=== PATIENT | female | born 1970 | race Caucasian/White ===

== ENCOUNTER → 2017-08-23 | Outpatient (CLI) | payer OTHER ==
[2017-08-23 12:02] LABS: ALBUMIN 4.2 g/dL (3.5-5.0); BILIRUBIN,TOTAL 0.5 mg/dL (0.2-1.0); CREATININE 0.8 mg/dL (0.5-1.5); POTASSIUM 3.6 mmol/L (3.5-5.1); T4 (THYROXINE) 6.8 mcg/dL (4.7-13.3); THYROID STIMULATING HORMONE 1.97 uIU/mL (0.36-3.74); TOTAL PROTEIN, SERUM 7.5 g/dL (6.0-8.3)
[2017-08-23 12:06] LABS: HEMOGLOBIN A1C 5.3 % (4.0-6.0)
== END | disposition home or self-care (01) ==
LOC: LAB 10:46
PROVIDERS: ATTEND Internal Medicine Endocrinology, Diabetes & Metabolism
DX: E03.8 Other specified hypothyroidism (principal); E66.8 Other obesity; R79.89 Other specified abnormal findings of blood chemistry; Z78.0 Asymptomatic menopausal state
CPT/HCPCS: 36415; 80053; 80061; 82670; 83001; 83002; 83036; 84436; 84439; 84443; 84480; 86376

== ENCOUNTER 2018-09-07 15:27 | Emergency (ER) | payer OTHER ==
[2018-09-07] MEDS ORDERED: BISACODYL 10 MG SUPP.RECT RC ONE (16:16)
== END 2018-09-07 18:13 | disposition home or self-care (01) ==
LOC: EDH 15:27
DX: B82.0 Intestinal helminthiasis, unspecified (principal); I10 Essential (primary) hypertension; Z88.8 Allergy status to other drugs, medicaments and biological substances
CPT/HCPCS: 74021; 81025; 83630; 87046; 87177